=== PATIENT | female | born 1950 | race Caucasian/White ===

== ENCOUNTER → 2016-11-01 | Outpatient (CLI) | payer MEDICARE, BC ==
[~2016-11-01] MED LIST: AMBIEN10 MG PO; CARDIZEM CD)(T180 MG PO; CELEBREX100 MG PO; COUMADIN ** IA5 MG PO; COZAAR100 MG PO; EPIPEN0.3 MG IM; ESTRACE0.5 MG PO; LIPITOR40 MG PO; LOVENOX80 MG/0.8 SUB-Q; MACROBID100 MG PO; MAXIMUM D310000 UNIT PO; MUCINEX600 MG PO; NIFEREX-150) (150 MG PO; PRILOSEC20 MG PO; PROVENTIL OR V6.7 GM INH; SINGULAIR10 MG PO; SYMBICORT 16010.2 GM INH; ULTRAM50 MG PO; ZYRTEC10 MG PO
[2016-11-01 13:46] LABS: CREATININE 1.4 mg/dL (0.5-1.1)
== END | disposition disaster alternative care site (69) ==
LOC: GRAD 12:49
PROVIDERS: Surgery
DX: N28.9 Disorder of kidney and ureter, unspecified (principal)
CPT/HCPCS: J2001; J7030; Q9967

== ENCOUNTER → 2017-01-12 | Day surgery (SDC) | payer MEDICARE, BC ==
[~2017-01-12] VITALS: Ht 162.6 cm; Wt 80.2 kg
--- NOTE | ~2017-01-12 | OR ---
PATIENT'S NAME: ADELAIDA KEATING [facility] AGE: 66 Y [address] ROOM: [place] [address] LOCATION: [facility] [place] ADMIT DATE: 01/12/2017 OR/Procedure Report DISCHARGE DATE: FAMILY PHYSICIAN: Stacy Deng APRN ATTENDING PHYSICIAN: Brett Gurrola SURGEON: Brett Gurrola MD [facility]WN SPECIALIST: Irvin King PA-C DATE OF PROCEDURE: 01/12/2017 CORRECTED COPY -- Asst added / 01-13-2017 / emiliano PREOPERATIVE DIAGNOSIS: Symptomatic cholelithiasis. POSTOPERATIVE DIAGNOSIS: Symptomatic cholelithiasis. PROCEDURE PERFORMED: Laparoscopic cholecystectomy. FINDINGS: Critical window was able to be obtained. There were stones present in the gallbladder. ESTIMATED BLOOD LOSS: 20 mL. COMPLICATIONS: None. INDICATIONS: The patient is a 66-year-old female who presented with abdominal pain in the right upper quadrant consistent with biliary colic. Gallstones were present. We discussed cholecystectomy with the patient; the risks, benefits, and alternatives. She elected to proceed. DESCRIPTION OF PROCEDURE: The patient was taken into the operating room. She was placed supine. She was given IV sedation. Her abdomen was prepped with ChloraPrep and sterilely draped. Local anesthetic was infiltrated just superior to the umbilicus. She had a previous incision here. A vertical incision was created over the old incision. The abdomen was then elevated. A Veress needle was inserted. Pneumoperitoneum was induced. Following this, a 5 mm trocar was inserted followed by insertion of the camera. There was no injury from initial trocar placement. Three more trocars were then positioned; an 11 mm epigastric, and two 5 mm right subcostal ports. Skin overlying the peritoneum was first anesthetized prior to making these incisions. All 3 trocars were inserted under direct visualization. The gallbladder was grasped. It was elevated over the dome of the liver. There were adhesions that had to be taken down. This was done both sharply and with electrocautery. The infundibulum was then grasped and retracted inferiorly and laterally to expose the Calot triangle. The cystic duct and artery were then dissected around circumferentially. A critical window was able to be obtained. Both of these structures were then doubly clipped and divided. The gallbladder was then removed from the liver bed using electrocautery. A small hole was created in PATIENT'S NAME: ADELAIDA KEATING [facility] AGE: 66 Y [address] ROOM: [place], [place] [address] LOCATION: [facility] [place]MIT DATE: 01/12/2017 OR/Procedure Report DISCHARGE DATE: FAMILY PHYSICIAN: Stacy Deng APRN ATTENDING PHYSICIAN: Brett Gurrola the gallbladder during dissection. No significant spillage was present as this was able to be controlled easily. The gallbladder was placed in an EndoCatch bag and brought out through the epigastric port site. The liver bed was then inspected. It appeared hemostatic. Clips appeared to be in good position on both the cystic duct and artery. The area was irrigated. The fluid was removed. The pneumoperitoneum was released. The trocars were removed. The trocar sites appeared hemostatic. The fascia of the epigastric port site was approximated with 0 Vicryl suture followed by skin closure of all 4 port sites with 4-0 Monocryl suture. Steri-Strips and sterile dressings were placed. Irvin King was necessary for retraction and visualization throughout the entire procedure. The patient tolerated the procedure well. MD ROYCE PUGH/modl /[id number] CORRECTED COPY -- Asst 01-13-2017 / kld d: 01/12/17 1823 t: 01/19/17 1331, OPERATIVE SUMMARY
[2017-01-12 07:45] LABS: BASOPHIL # 0.1 K/uL (0.0-0.2); EOSINOPHIL % 17.3 %; HEMATOCRIT 31.8 % (33.0-46.0); HEMOGLOBIN 10.7 g/dL (10.0-15.0); IMMATURE GRANULOCYTE % 0.2 %; LYMPHOCYTE # 1.4 K/uL (0.8-4.0); MCH 27.6 pg (27.0-34.0); MCHC 33.6 gm/dL (32.0-36.5); MONOCYTE # 0.7 K/uL (0.0-1.0); MONOCYTE % 11.2 %; MPV 9.5 fl (9.4-12.4); NEUTROPHIL # (ANC) 2.7 K/uL (1.8-7.8); NEUTROPHIL % 46.3 %; NRBC % 0 /100WBC (0-0.00); PLATELET COUNT 280 K/uL (150-450); RBC 3.88 M/uL (3.50-5.50); RDW-CV 15.9 % (11.9-14.6); WBC 5.9 K/uL (4.0-11.0)
[2017-01-12 07:52] LABS: INR - (THERAPEUTIC) 1.21 (0.92-1.07); PROTIME 12.7 SECONDS (9.8-11.4)
[2017-01-12 07:58] LABS: ALBUMIN 3.3 gm/dL (3.5-5.0); ANION GAP 11.1 (10.0-19.0); CREATININE 1.1 mg/dL (0.5-1.1); POTASSIUM 3.1 mMol/L (3.7-5.1); TOTAL BILIRUBIN 0.6 mg/dL (0.0-1.5); TOTAL PROTEIN 7.1 g/dL (6.0-8.4)
== END ==
LOC: GPOC 01-06 14:00 → GSDC 07:03 → GPOC 07:30
PROVIDERS: Surgery
PROC: 0FT44ZZ Resection of Gallbladder, Percutaneous Endoscopic Approach (ICD-10-PCS; principal; 2017-01-12)
DX: K80.12 Calculus of gallbladder with acute and chronic cholecystitis without obstruction (principal); I48.91 Unspecified atrial fibrillation; J45.909 Unspecified asthma, uncomplicated; K44.9 Diaphragmatic hernia without obstruction or gangrene; J40 Bronchitis, not specified as acute or chronic; E78.00 Pure hypercholesterolemia, unspecified; I25.10 Atherosclerotic heart disease of native coronary artery without angina pectoris; K21.9 Gastro-esophageal reflux disease without esophagitis; M19.90 Unspecified osteoarthritis, unspecified site; I10 Essential (primary) hypertension; Z98.41 Cataract extraction status, right eye; Z98.42 Cataract extraction status, left eye; Z98.890 Other specified postprocedural states; Z90.49 Acquired absence of other specified parts of digestive tract
CPT/HCPCS: J0694; J1100; J2001; J2250; J2405; J3010; J7120

== ENCOUNTER 2017-01-18 00:23 | Emergency (ER) | payer MEDICARE, BC ==
--- NOTE | ~2017-01-18 | ER ---
[facility] 66 Y [address] ROOM: [place] [address] LOCATION: [facility] ADMIT DATE: 01/18/2017 ER/Outpatient Report DISCHARGE DATE: 01/18/2017 FAMILY PHYSICIAN: Physician, Unknown ATTENDING PHYSICIAN: Estiven Sandoval Admission date and time are documented on the medical record. I saw the patient at 0040 hours. CHIEF COMPLAINT: Abdominal pain, right upper quadrant. HISTORY OF PRESENT ILLNESS: The patient is a 66-year-old female who is postop cholecystectomy complaining of right upper quadrant abdominal pain. The patient had a cholecystectomy on 01/12/2017. The patient did well postop, but over the past 2 days has had increasing right upper quadrant abdominal pain. Denies fever, chills, or sweats. No nausea, vomiting, or diarrhea. No urinary symptoms. No chest pain, shortness of breath, or back pain. No lightheadedness, dizziness, syncope, or near syncope. No fall or trauma. No headache, eyes, ears, nose, throat, neck, or spine pain. No neuro changes. No skin eruptions or rash. HOME MEDICATIONS: See attached medication list. ALLERGIES: NONE. SOCIAL HISTORY: Nonsmoker. Occasional intake of alcohol. SIGNIFICANT PAST MEDICAL HISTORY: Asthma, atherosclerotic ischemic heart disease, coronary artery disease, hypertension, bradycardia, degenerative joint disease, degenerative osteoarthritis, allergic rhinitis, anemia, paroxysmal atrial fibrillation, dyslipidemia, diverticulosis, asthma, and renal carcinoma. OPERATIONS: Appendectomy, cholecystectomy, bilateral total knee arthroplasty, tonsillectomy, hysterectomy, and partial nephrectomy. REVIEW OF SYSTEMS: All systems reviewed by me are negative with the exception of those discussed in the history of present illness. PAT[facility] AGE: 66 Y [address] ROOM: [place] [address] LOCATION: [facility] ADMIT DATE: 01/18/2017 ER/Outpatient Report DISCHARGE DATE: 01/18/2017 FAMILY PHYSICIAN: Physician, Unknown ATTENDING PHYSICIAN: Estiven Sandoval PHYSICAL EXAMINATION: VITAL SIGNS: Temperature 98.2, tympanic, pulse 78, respirations 16, blood pressure 130/62, and O2 sat on room air is 92%. HEAD: Normocephalic. EYES, EARS, NOSE, THROAT: Clear. Mucous membranes moist. NECK: Negative. LUNGS: Clear. HEART: Regular. ABDOMEN: Nondistended. Tender right upper quadrant. No palpable masses. Decreased bowel tones. No CVA tenderness. EXTREMITIES: Intact. NEUROVASCULAR: Intact. SKIN: Clear. LABORATORY DATA: CMS was normal except for a slight low potassium of 3.4, elevated total bilirubin of 2.5, elevated alk phos of 292, amylase and lipase were normal. White count was 6600, differential of 46 segs, 3 bands, 17 lymphs, 10 monos, 23 eos, hemoglobin was 11.2 with hematocrit 33.4, and platelet count 329,000. Ultrasound of gallbladder showed a common duct about 1 cm, no other abnormalities were noted, see Radiology report. IMPRESSION: Right upper quadrant abdominal pain, postoperative cholecystectomy, approximately 1 week ago. PLAN: I did give the patient morphine for pain and Zofran for nausea. Discharged home. Observation. Activity as tolerated. Continue present home medications and care. See Dr. Gurrola as scheduled tomorrow. Follow up with personal physician as scheduled or as needed. MD LUCA MOE/modl /[id number] d: 01/18/17 0555 t: 01/20/17 1829, OUTPATIENT REPORT
[2017-01-18 01:14] LABS: HEMATOCRIT 33.4 % (33.0-46.0); HEMOGLOBIN 11.2 g/dL (10.0-15.0); MCH 27.8 pg (27.0-34.0); MCHC 33.5 gm/dL (32.0-36.5); MCV 82.9 fl (83.0-98.0); MPV 9.6 fl (9.4-12.4); PLATELET COUNT 329 K/uL (150-450); RBC 4.03 M/uL (3.50-5.50); RDW-CV 15.6 % (11.9-14.6); WBC 6.6 K/uL (4.0-11.0)
[2017-01-18 01:31] LABS: ALBUMIN 2.4 gm/dL (3.5-5.0); ANION GAP 11.4 (10.0-19.0); CALCIUM 8.9 mg/dL (8.5-10.5); CREATININE 0.7 mg/dL (0.5-1.1); POTASSIUM 3.4 mMol/L (3.7-5.1); TOTAL PROTEIN 6.6 g/dL (6.0-8.4)
[2017-01-18 01:33] LABS: TOTAL BILIRUBIN 2.5 mg/dL (0.0-1.5)
[2017-01-18 01:43] LABS: ABSOLUTE NEUTROPHIL CT (ANC) 3.2 K/uL (1.8-7.8); BANDED NEUTROPHIL # 0.2 K/uL (0.0-0.1); BANDED NEUTROPHILS % 3 %; LYMPHOCYTE # 1.1 K/uL (0.8-4.0); LYMPHOCYTE % 17 %; MONOCYTE # 0.7 K/uL (0.0-1.0); SEGMENTED NEUTROPHIL % 46 %
== END 2017-01-18 02:08 | disposition disaster alternative care site (69) ==
LOC: GMED 00:23
PROVIDERS: Emergency Medicine
DX: G89.18 Other acute postprocedural pain (principal); R10.11 Right upper quadrant pain; I10 Essential (primary) hypertension; I48.0 Paroxysmal atrial fibrillation; I25.10 Atherosclerotic heart disease of native coronary artery without angina pectoris; J45.909 Unspecified asthma, uncomplicated; E78.5 Hyperlipidemia, unspecified; D64.9 Anemia, unspecified; M19.90 Unspecified osteoarthritis, unspecified site; Z85.520 Personal history of malignant carcinoid tumor of kidney; Z90.49 Acquired absence of other specified parts of digestive tract; Z90.710 Acquired absence of both cervix and uterus; Z88.8 Allergy status to other drugs, medicaments and biological substances; Z79.891 Long term (current) use of opiate analgesic; Z79.890 Hormone replacement therapy; Z79.01 Long term (current) use of anticoagulants; Z79.899 Other long term (current) drug therapy; Z98.890 Other specified postprocedural states
CPT/HCPCS: J2270; J2405

== ENCOUNTER → 2017-01-18 | Outpatient (CLI) | payer MEDICARE, BC | END | disposition disaster alternative care site (69) | LOC: GRAD 14:11 | DX: R10.9 Unspecified abdominal pain (principal); R60.0 Localized edema; K83.8 Other specified diseases of biliary tract; Z90.49 Acquired absence of other specified parts of digestive tract | CPT/HCPCS: Q9967 ==